=== PATIENT | female | born 1970 | race African-American/Black ===

== ENCOUNTER 2024-07-06 10:19 | Outpatient (CLI) | payer MEDICARE, SELFPAY ==
--- NOTE | ~2024-07-06 | XR_ITS ---
Left Knee Technique: AP, lateral, and sunrise views were obtained. Clinical History: Myalgia Findings: No fracture or dislocation is seen. Osseous alignment is anatomic. Moderate tricompartmenta l degenerative change, worst in the medial compartment. Soft tissues are unremarkable. No joint effus ion is seen. Impression: Degenerative change, as above. Reviewed, dictated and finalized at location M. Impression: Degenerative change, as above.
--- NOTE | ~2024-07-06 | US_ITS ---
US thyroid INDICATION: Nontoxic thyroid nodule TECHNIQUE: Real-time sonographic images of the thyroid gland were obtained. COMPARISON: Nontoxic thyroid nodule FINDINGS: The right thyroid lobe measures 6.3 x 2.2 x 3.1 cm. The left thyroid lobe measures 4.8 x 1 .3 x 1.8 cm. In the right lobe superiorly there is a heterogeneous solid hypoechoic mass measuring 3 x 2 x 2.4 cm with wider than tall, ill-defined margins and internal echogenic foci, TR 7. In the isth mus there is an oval wider than tall solid hypoechoic 11 mm nodule, wider than tall, smoothly margina pineda without echogenic foci, TR 4. IMPRESSION: 1. Thyroid nodules, largest dominant in the right thyroid lobe measuring up to 3 cm, TR 7. Ultrasoun d-guided fine-needle aspiration biopsy recommended. Reviewed, dictated and finalized at location B. IMPRESSION: 1. Thyroid nodules, largest dominant in the right thyroid lobe measuring up to 3 cm, TR 7. Ultrasound-guided fine-needle aspiration biopsy recommended.
--- NOTE | ~2024-07-06 | XR_ITS ---
XR shoulder RT min 2V, XR shoulder LT min 2V Ordering provider: Britney CortesRob History: . Myalgia . Comparison: None. FINDINGS: BONES: No acute fracture or dislocation. Degenerative changes in the area of the greater tuberosity in both sides. JOINT SPACES: The acromioclavicular joint shows osteoarthritic changes of the left and right sides. T he glenohumeral joint is normal. SOFT TISSUES: Normal. IMPRESSION: No acute osseous abnormality right shoulder. Bilateral osteoarthritic changes of the acromioclavicular joint with degenerative changes in the grea ter tuberosity. Reviewed, dictated and finalized at location A. IMPRESSION: No acute osseous abnormality right shoulder. Bilateral osteoarthritic changes of the acromioclavicular joint with degenerati ve changes in the greater tuberosity.
--- NOTE | ~2024-07-06 | XR_ITS ---
XR hand LT 2V Ordering provider: Britney CortesRob History: . Myalgia . Comparison: None. FINDINGS: BONES: No acute fracture or dislocation. JOINT SPACES: Well maintained. SOFT TISSUES: Unremarkable. IMPRESSION: No acute osseous abnormality left hand. Reviewed, dictated and finalized at location A.
--- NOTE | ~2024-07-06 | XR_ITS ---
Right Knee Technique: AP, lateral, and sunrise views were obtained. Clinical History: Myalgia Findings: No fracture or dislocation is seen. There is moderate to advanced degenerative change of th e medial compartment, with medial joint space narrowing and prominent medial joint line osteophyte fo rmation. There is mild degenerative change of the lateral and patellofemoral compartments.. Soft tiss ues are unremarkable. No joint effusion is seen. Impression: Tricompartmental degenerative change, as above, worst in the medial compartment. Reviewed, dictated and finalized at location M. Impression: Tricompartmental degenerative change, as above, worst in the medial compartment .
--- NOTE | ~2024-07-06 | XR_ITS ---
XR hand RT 2V Ordering provider: Britney CortesRob History: . Myalgia . Comparison: None. FINDINGS: BONES: No acute fracture or dislocation. JOINT SPACES: Normal. SOFT TISSUES: Normal. IMPRESSION: No acute osseous abnormality right hand. Reviewed, dictated and finalized at location A.
--- NOTE | ~2024-07-06 | XR_ITS ---
[id number] Ordering provider: Britney CortesRob History: . Myalgia . Comparison: None. FINDINGS: VERTEBRAL BODIES: Normal height and alignment. No visible fracture or subluxation. The dens is intact . Degenerative changes of the spine. DISK SPACES: Well maintained. PARASPINOUS SOFT TISSUES: No prevertebral soft tissue swelling. IMPRESSION: No acute osseous abnormality cervical spine. . Reviewed, dictated and finalized at location A.
== END 2024-07-06 10:20 | disposition home or self-care (01) ==
PROVIDERS: PCP Internal Medicine Infectious Disease; Visit Provider Internal Medicine Infectious Disease
DX: E04.2 Nontoxic multinodular goiter (principal); M17.0 Bilateral primary osteoarthritis of knee; M19.012 Primary osteoarthritis, left shoulder; M19.011 Primary osteoarthritis, right shoulder
CPT/HCPCS: 72040; 73030; 73120; 73564; 76536